=== PATIENT | female | born 1975 | race African-American/Black ===

== ENCOUNTER → 2016-08-27 | Outpatient (CLI) | payer BC ==
[2014-11-11 01:40] VITALS: BP 175/92
[~2016-08-27] MED LIST: ALPR0.5T PO; ATOR20TA PO; HYDR12.53 PO; LISI1TAB5 PO; LISI1TAB7 PO; METO25TA4 PO
== END | disposition home or self-care (01) ==
LOC: PCVCIMAG 09:06
PROVIDERS: ATTEND Internal Medicine
DX: I10 Essential (primary) hypertension (principal)
CPT/HCPCS: 93306

== ENCOUNTER → 2020-03-25 | Outpatient (CLI) | payer BC ==
[2014-11-11 01:40] VITALS: BP 175/92
[~2020-03-25] MED LIST changes: -HYDR12.53 PO; +HYDR12.575 PO; +LISI1TAB20 PO; +LISI1TAB37 PO; -LISI1TAB5 PO; -LISI1TAB7 PO
--- NOTE | 2020-03-25 19:19 | KCIC ---
Bilateral digital screening mammograms: Reason for examination: Routine screening. New baseline. Interpretation was made with the benefit of CAD. The skin and nipples show no abnormalities. No abnormal axillary lymph nodes are seen. The breast parenchyma is heterogeneously dense. (Breast density: Category C.) There does appear to be some focal nodular asymmetry at approximately the 2:00 B position of the left breast. This may represent superimposed tissues but recommend further evaluation with coned compression views and ultrasound. There are no other dominant masses, suspicious calcifications or architectural distortion. Impression: Small nodular density at the 2:00 B position of the left breast. Recommend further evaluation with coned compression views and ultrasound. Your patient's mammogram demonstrates that she has dense breast tissue (breast density category C or D), which could hide abnormalities, and if she has other risk factors for breast cancer that have been identified, she might benefit from supplemental screening tests that may be suggested by you as her ordering physician. Dense breast tissue, in and of itself, is a relatively common condition. Therefore, this information is not provided to cause undue concern, but rather to raise your awareness and to promote discussion with your patient regarding the presence of other risk factors, in addition to dense breast tissue. Your patient's mammography results will be sent to her. BI-RAD Category 0: Incomplete. Needs additional imaging evaluation. "Our facility is accredited by the [employer] Mammography [employer]." This patient's information has been entered into a reminder system for the patient to be notified with the results of her examination and a target date for the next mammogram. Electronically signed by: Josy Smith MD (03/25/2020 7:16 PM) [email or web address]
== END ==
LOC: KCIC MAMMO 13:48
PROVIDERS: ATTEND Nurse Practitioner Family
DX: Z12.31 Encounter for screening mammogram for malignant neoplasm of breast (principal); N64.89 Other specified disorders of breast
CPT/HCPCS: 77067